=== PATIENT | female | born 1995 | race Caucasian/White ===

== ENCOUNTER 2024-02-26 12:54 | Emergency (ER) | payer OTHER ==
[~2024-02-26] VITALS: Ht 165.1 cm; Wt 233.9 kg
[2024-02-26] MEDS ORDERED: OMEPRAZOLE MAGN20 MG PO (13:17)
[2024-02-26 13:40] LABS: BASO % 0.2 % (0.0-1.0); EOS # 0.3 10*3/uL (0.0-0.4); HEMATOCRIT 47.4 % (37.0-47.0); LYMPH # 2.3 10*3/uL (1.3-4.4); LYMPH % 18.6 % (27.0-41.0); MEAN CELL VOLUME 93.3 fl (81.0-99.0); MEAN CORPUSCULAR HGB 30.5 pg (27.0-31.0); MEAN CORPUSCULAR HGB CONC 32.7 g/dl (33.0-37.0); MEAN PLATELET VOLUME 9.9 fl (9.6-12.3); MONO # 0.6 10*3/uL (0.1-1.0); MONO % 5.1 % (3.0-9.0); NEUT % 73.7 % (47.0-73.0); PLATELET COUNT AUTOMATED 296 10*3/uL (130-400); RED BLOOD COUNT 5.08 10*6/uL (4.10-5.10); RED CELL DISTRI WIDTH 13.4 % (0-14.5); WHITE BLOOD COUNT 12.3 10*3/uL (4.8-10.8)
[2024-02-26 13:59] LABS: BUN 16 mg/dl (9-23); CHLORIDE 100 mmol/L (98-107)
== END 2024-02-26 15:47 | disposition home or self-care (01) ==
LOC: ED 12:54
PROVIDERS: Physician Assistant Medical
DX: I89.0 Lymphedema, not elsewhere classified (principal); F41.9 Anxiety disorder, unspecified; K21.9 Gastro-esophageal reflux disease without esophagitis; Z88.0 Allergy status to penicillin

== ENCOUNTER 2025-03-21 08:17 | Emergency (ER) | payer BC ==
[~2025-03-21] VITALS: Ht 167.6 cm; Wt 226.8 kg
[~2025-03-21 08:17] MED LIST: OMEPRAZOLE MAGN20 MG PO
[2025-03-21 09:11] LABS: BASO # 0.1 10*3/uL (0.0-0.1); BASO % 0.4 % (0.0-1.0); EOS # 0.1 10*3/uL (0.0-0.4); EOS % 0.5 % (1.0-4.0); MEAN CELL VOLUME 92.7 fl (81.0-99.0); MEAN CORPUSCULAR HGB 30.5 pg (27.0-31.0); MEAN PLATELET VOLUME 10.1 fl (9.6-12.3); MONO # 1.4 10*3/uL (0.1-1.0); MONO % 8.2 % (3.0-9.0); NEUT # 12.7 10*3/uL (2.3-7.9); NEUT % 76.5 % (47.0-73.0); NUCLEATED RED BLOOD CELL 0.0 % (0.0-0.0); NUCLEATED RED BLOOD CELL 0.0 10*3/uL (0.0-0.0); PLATELET COUNT AUTOMATED 269 10*3/uL (130-400); RED CELL DISTRI WIDTH 13.5 % (0-14.5)
[2025-03-21 09:35] LABS: BUN 6 mg/dl (9-23)
[2025-03-21] MEDS ORDERED: IBUPROFEN 800 MG TAB PO ONE (10:15)
[2025-03-21] MEDS ORDERED: TRAMADOL HCL50 MG PO (10:22)
[2025-03-21] MEDS ORDERED: CLINDAMYCIN HC300 MG PO (10:22)
[2025-03-21] MEDS ORDERED: NAPROSYN500 MG PO (10:22)
== END 2025-03-21 10:33 | disposition home or self-care (01) ==
LOC: ED 08:17
PROVIDERS: Emergency Medicine
DX: L03.116 Cellulitis of left lower limb (principal); R22.42 Localized swelling, mass and lump, left lower limb; E66.01 Morbid (severe) obesity due to excess calories; Z88.0 Allergy status to penicillin; Z79.899 Other long term (current) drug therapy

== ENCOUNTER → 2025-03-27 | Outpatient (CLI) | payer BC ==
[~2025-03-27] MED LIST changes: +CLINDAMYCIN HC300 MG PO; +NAPROSYN500 MG PO; +TRAMADOL HCL50 MG PO
== END | disposition home or self-care (01) ==
LOC: WOUNDCARE 00:35
PROVIDERS: ATTEND Nurse Practitioner Family
DX: L03.116 Cellulitis of left lower limb (principal); I83.893 Varicose veins of bilateral lower extremities with other complications; I87.2 Venous insufficiency (chronic) (peripheral); I89.0 Lymphedema, not elsewhere classified; I10 Essential (primary) hypertension; E66.01 Morbid (severe) obesity due to excess calories; F17.200 Nicotine dependence, unspecified, uncomplicated